=== PATIENT | female | born 1970 | race African-American/Black ===

== ENCOUNTER 2017-06-21 00:48 | Emergency (ER) | payer BC ==
[2017-06-21 03:54] VITALS: BP 134/80
== END 2017-06-21 03:54 | disposition home or self-care (01) ==
LOC: ED 00:48
DX: G47.30 Sleep apnea, unspecified (principal); I10 Essential (primary) hypertension; E66.01 Morbid (severe) obesity due to excess calories; E03.9 Hypothyroidism, unspecified
CPT/HCPCS: Q0092

== ENCOUNTER 2017-12-14 19:29 | Emergency (ER) | payer BC ==
[~2017-12-14] VITALS: Ht 162.6 cm; Wt 123.0 kg
[2017-12-14 19:43] VITALS: Ht 162.6 cm; Wt 123.0 kg
[2017-12-14 20:55] LABS: BASOPHIL % 0.7 % (0-2); PLATELET COUNT 315 x10^3mcL (130-400); RED CELL DISTRIBUTION WIDTH 12.8 % (11.5-14.5)
[2017-12-14 22:02] LABS: ALBUMIN 3.8 g/dL (3.4-5.0); BILIRUBIN TOTAL 0.5 mg/dL (0.20-1.00); CALCIUM 9.2 mg/dL (8.5-10.1); CARBON DIOXIDE 25.2 mmol/L (21-32); CREATININE SERUM 1.1 mg/dL (0.6-1.0); FREE T4 1.58 ng/dL (0.76-1.46); TOTAL PROTEIN, SERUM 8.5 g/dL (6.4-8.2)
[2017-12-14 22:10] LABS: POTASSIUM SERUM 3.2 mmol/L (3.5-5.1)
[2017-12-14 22:35] VITALS: BP 136/99
== END 2017-12-14 22:35 | disposition home or self-care (01) ==
LOC: ED 19:29
PROVIDERS: Emergency Medicine
DX: R00.2 Palpitations (principal); E87.6 Hypokalemia; E05.90 Thyrotoxicosis, unspecified without thyrotoxic crisis or storm; R07.89 Other chest pain; R03.0 Elevated blood-pressure reading, without diagnosis of hypertension; M79.602 Pain in left arm; Z88.5 Allergy status to narcotic agent
CPT/HCPCS: 36415; 84439

== ENCOUNTER 2019-08-18 15:20 | Emergency (ER) | payer OTHER ==
[~2019-08-18] VITALS: Ht 162.6 cm; Wt 121.1 kg
[2019-08-18 15:24] VITALS: Ht 162.6 cm; Wt 121.1 kg
[2019-08-18 16:03] LABS: BASOPHIL % 1.2 % (0-2); PLATELET COUNT 265 x10^3mcL (130-400); RED CELL DISTRIBUTION WIDTH 12.6 % (11.5-14.5)
[2019-08-18 16:13] LABS: CALCIUM 9.4 mg/dL (8.5-10.1); CARBON DIOXIDE 25.2 mmol/L (21-32); CHLORIDE SERUM 105 mmol/L (98-107); CREATININE SERUM 0.8 mg/dL (0.6-1.0); GFR1 > 60 mL/min; GLUCOSE SERUM 107 mg/dL (74-106); POTASSIUM SERUM 3.5 mmol/L (3.5-5.1); SODIUM SERUM 142 mmol/L (136-145)
[2019-08-18 16:18] LABS: ALBUMIN 3.9 g/dL (3.4-5.0); ALKALINE PHOSPHATASE 80 U/L (46-116); ALT/SGPT 46 U/L (14-59); AST/SGOT 25 U/L (15-37); BILIRUBIN TOTAL 0.43 mg/dL (0.20-1.00); TOTAL PROTEIN, SERUM 8.1 g/dL (6.4-8.2)
[2019-08-18 16:57] LABS: microscopic required? NO
[2019-08-18 17:08] LABS: UA SPECIFIC GRAVITY 1.015 (1.005-1.035); urine erythrocyte NEGATIVE (NEGATIVE)
[2019-08-18 18:15] VITALS: BP 127/64
== END 2019-08-18 18:15 | disposition home or self-care (01) ==
LOC: ED 15:20
PROVIDERS: Emergency Medicine
DX: R42 Dizziness and giddiness (principal); F41.9 Anxiety disorder, unspecified; R51 Headache; H53.8 Other visual disturbances; I10 Essential (primary) hypertension; E03.9 Hypothyroidism, unspecified; Z88.5 Allergy status to narcotic agent
CPT/HCPCS: 36415